=== PATIENT | male | born 1975 ===

== ENCOUNTER 2023-12-22 05:09 | Day surgery (SDC) | payer OTHER ==
[~2023-12-22] VITALS: Ht 172.7 cm; Wt 74.8 kg
[2023-12-22] MEDS ORDERED: CEFTRIAXONE SODIUM 2,000 MG VIAL ONE (06:15)
[2023-12-22] MEDS ORDERED: METRONIDAZOLE/SODIUM CHLORIDE 500 MG/100 ML PIGGYBACK IV ONE ×2 (06:15→08:00)
[2023-12-22] MEDS ORDERED: BUPIVACAINE HCL/PF 0.5% 30ML ML ONE (07:02)
[2023-12-22] MEDS ORDERED: POVIDONE-IODINE 118 ML BOTT TOP ONE ×2 (07:02→08:00)
[2023-12-22] MEDS ORDERED: LIDOCAINE HCL/EPINEPHRINE 10MG/ML 1% 50ML IJ ONE ×2 (07:03→08:00)
[2023-12-22] MEDS ORDERED: HEMOSTATIC MATRIX 1 KIT KIT TOP ONE ×2 (07:03→08:00)
[2023-12-22] MEDS ORDERED: DIBUCAINE 15 GM OINT..GM. TUBE ONE (07:03)
[2023-12-22] MEDS ORDERED: BUPIVACAINE HCL 30 ML VIAL IJ ONE (08:00)
[2023-12-22] MEDS ORDERED: CEFTRIAXONE SODIUM 2,000 MG VIAL IV ONE (08:00)
[2023-12-22] MEDS ORDERED: RECTICARE30 GM TOP (08:00)
[2023-12-22] MEDS ORDERED: DIBUCAINE 30 GM TUBE RECTAL ONE (08:00)
[2023-12-22] MEDS ORDERED: PERCOCET 5-3251 EACH PO (08:00)
[2023-12-22] MEDS ORDERED: TAMSULOSIN HCL 0.4 MG CAP PO ONE ×2 (13:22→15:30)
== END 2023-12-22 14:00 | disposition home or self-care (01) ==
LOC: CIR.AMB 05:09
PROVIDERS: ATTEND Surgery
DX: D12.9 Benign neoplasm of anus and anal canal (principal); K64.2 Third degree hemorrhoids; R19.5 Other fecal abnormalities; A63.0 Anogenital (venereal) warts